=== PATIENT | female | born 1995 | race Caucasian/White ===

== ENCOUNTER 2019-05-07 23:59 | Emergency (ER) | payer BC ==
[2019-05-08] MEDS ORDERED: Silver Sulfadiazine 1% Crm 50 GM Tube TOP ONE
--- NOTE | 2019-05-08 00:31 | EDM.PDOC ---
ED HPI GENERAL MEDICAL PROBLEM - General Chief Complaint: Burn Stated Complaint: RT BURN ARM Time Seen by Provider: 05/08/19 00:25 Source of Information: Reports: Patient, Significant Other History Limitations: Reports: No Limitations - History of Present Illness INITIAL COMMENTS - FREE TEXT/NARRATIVE: Oneyda was making maccaroni and cheese this early am when the boiling milk splashed accidentally onto the volar R forearm near the wrist, with the appearance of first and second degree camilo. The blisters remain intact, with pain the primary sx. She has taken no meds. The R hand is not involved. ED ROS GENERAL - Review of Systems Review Of Systems: ROS reveals no pertinent complaints other than HPI. ED EXAM, BURN/SMOKE INHALATION - Physical Exam Exam: See Below General Appearance: Alert, WD/WN, Mild Distress, Thin Head: No Symptoms Neck: No Symptoms Respiratory: Lungs Clear Cardiovascular: Regular Rate, Rhythm Back Exam: Normal Inspection Extremities: Normal Range of Motion, Redness (R forearm: area of erythema <1% BSA with 3 small intact blisters) Neurological: Alert, Oriented, CN II-XII Intact, Normal Cognition, No Motor/ Sensory Deficits Psychiatric: Normal Affect, Normal Mood Skin Exam: Warm, Dry, Erythema (1st and 2nd degree camilo <1% BSA R forearm) Lymphatic: No Adenopathy Course - Vital Signs Text/Narrative:: Following assessment, the camilo were dressed with Silvadene creme, telfa and secured with Kerlix wrap. Patient tolerated well. Departure - Departure Time of Disposition: 00:35 Disposition: Home, Self-Care 01 Condition: Fair Clinical Impression: Burn of right forearm Qualifiers: Encounter type: initial encounter Burn degree: partial thickness (2nd degree) Qualified Code(s): T22.211A - Burn of second degree of right forearm, initial encounter - Discharge Information *PRESCRIPTION DRUG MONITORING PROGRAM REVIEWED*: Not Applicable *COPY OF PRESCRIPTION DRUG MONITORING REPORT IN PATIENT BEAU: Not Applicable Referrals: Mikaela Meeks PA-C [Primary Care Provider] - Forms: ED Department Discharge - Problem List & Annotations (1) Burn of right forearm SNOMED Code(s): 33551018 Code(s): T22.011A - BURN OF UNSPECIFIED DEGREE OF RIGHT FOREARM, INIT ENCNTR Status: Acute Annotation/Comment:: dress daily with Silvadene cream, telfa , and Kerlix wrap. She may take analgesic of choice for pain. Qualifiers: Burn degree: partial thickness (2nd degree) - Problem List Review Problem List Initiated/Reviewed/Updated: Yes - Assessment/Plan Plan: Follow up with PCP if needed.
== END 2019-05-08 00:45 | disposition home or self-care (01) ==
LOC: FB.ED 23:59
DX: T22.211A Burn of second degree of right forearm, initial encounter (principal); X10.0XXA Contact with hot drinks, initial encounter
CPT/HCPCS: 16020; 99282; A9270